=== PATIENT | male | born 1955 | race Caucasian/White ===

== ENCOUNTER 2019-09-18 13:00 | Outpatient (RCR) | payer MEDICARE, MEDICAID, SELFPAY | END 2019-09-18 23:59 | disposition home or self-care (01) | LOC: ANHAUDIO 13:00 | DX: Z46.1 Encounter for fitting and adjustment of hearing aid (principal) | CPT/HCPCS: 99199 ==

== ENCOUNTER 2020-06-29 09:09 | Outpatient (RCR) | payer MEDICAID, SELFPAY | END 2020-06-29 23:59 | disposition home or self-care (01) | LOC: ANHAUDIO 09:09 | DX: Z46.1 Encounter for fitting and adjustment of hearing aid (principal) | CPT/HCPCS: 99199 ==

== ENCOUNTER 2021-01-31 12:05 | Outpatient (RCR) | payer SELFPAY | END 2021-01-31 23:59 | disposition home or self-care (01) | LOC: ANHAUDIO 12:05 | DX: Z46.1 Encounter for fitting and adjustment of hearing aid (principal) | CPT/HCPCS: V5267 ==

== ENCOUNTER 2021-06-28 13:02 | Outpatient (RCR) | payer MEDICAID, SELFPAY | END 2021-06-28 23:59 | disposition home or self-care (01) | LOC: ANHAUDIO 13:02 | DX: Z46.1 Encounter for fitting and adjustment of hearing aid (principal) | CPT/HCPCS: 99199 ==